=== PATIENT | male | born 1960 | race Two or more races ===

== ENCOUNTER → 2023-09-08 06:34 | Day surgery (SDC) | payer OTHER, SELFPAY | LOC: GI 06:34 | PROVIDERS: ATTENDING PHYSICIAN Internal Medicine Gastroenterology | DX: Z12.11 Encounter for screening for malignant neoplasm of colon (principal); K64.0 First degree hemorrhoids; K63.5 Polyp of colon | CPT/HCPCS: 45380; 88305 ==